=== PATIENT | female | born 1995 | race Caucasian/White ===

== ENCOUNTER 2017-10-03 18:18 | Emergency (ER) | payer BC ==
[2017-10-03 18:46] VITALS: BP 105/67
--- NOTE | 2017-10-03 19:32 | UC ---
Dental HPI - HPI Summary HPI Summary: 22 y/o female presents to the urgent care c/o Rt upper gum pain and swelling s/ p gum surgery for smile design on 09/26/2017. Pt states she was rinsing her mouth as directed by the Dentist, but swelling has worsen and the molar roots are more exposed. Pain is 5/10. she has took ibuprofen 400mg this morning to alleviate symptoms. Pt denies fever, SOB, chest pain, abdominal pain, N/V/D - History of Current Complaint Chief Complaint: UCDentalProblem Stated Complaint: ORAL COMPLAINT Time Seen by Provider: 10/03/17 19:30 Hx Obtained From: Patient Hx Last Menstrual Period: CURRENT Onset/Duration: Gradual Onset, Lasting Weeks - 1 week, Worse Since - yesterday Severity: Moderate Pain Intensity: 5 Pain Scale Used: 0-10 Numeric Aggravating Factor(s): Chewing Alleviating Factor(s): OTC Meds - Allergies/Home Medications Allergies/Adverse Reactions: Allergies Allergy/AdvReac Type Severity Reaction Status Date / Time amoxicillin Allergy Rash Verified 10/03/17 18:38 PMH/Surg Hx/FS Hx/Imm Hx Previously Healthy: Yes - Pt denies PMHX - Surgical History Surgical History: Yes Surgery Procedure, Year, and Place: WISDOM TEETH EXTRACTIONS. - Family History Known Family History: Positive: Diabetes - Social History Occupation: Student Lives: With Family Alcohol Use: Occasionally Substance Use Type: None Smoking Status (MU): Never Smoked Tobacco Review of Systems Constitutional: Negative Skin: Negative Eyes: Negative ENT: Dental Pain - gum pain and swelling Respiratory: Negative Cardiovascular: Negative Gastrointestinal: Negative Genitourinary: Negative Motor: Negative Neurovascular: Negative Musculoskeletal: Negative Neurological: Negative Psychological: Negative Is Patient Immunocompromised?: No All Other Systems Reviewed And Are Negative: Yes Physical Exam - Summary Physical Exam Summary: Vital Signs Reviewed: Yes General: well developed. well nourished female sitting in the examining table w/ o any apparent distress Eyes: Positive: Conjunctiva Clear - PERRLA, EOMI, fundi grossly normal ENT: Positive: Normal ENT inspection, Hearing grossly normal, Pharyngeal erythema, TMs normal, Uvula midline. Negative: Tonsillar swelling, Tonsillar exudate, Trismus Dental: Positive: Percussion Tenderness @ - molar 4,5, Mild Abscess @ - molar 4, 5, mild Cervical Lymphadenopathy - B/L anterior, Neck: Positive: Supple, Nontender Respiratory: Positive: Chest non-tender, Lungs clear, Normal breath sounds, No respiratory distress Cardiovascular: Positive: RRR, No Murmur, Pulses Normal, Brisk Capillary Refill Abdomen Description: Positive: Nontender, No Organomegaly, Soft. Negative: CVA Tenderness (R), CVA Tenderness (L) Bowel Sounds: Positive: Present Musculoskeletal: Positive: Strength Intact, ROM Intact, No Edema Neurological Exam: Normal Psychological Exam: Normal Skin Exam: Normal Triage Information Reviewed: Yes Vital Signs: Initial Vital Signs Temp 99 F 10/03/17 18:39 Pulse 65 10/03/17 18:39 Resp 16 10/03/17 18:39 BP 105/67 10/03/17 18:39 Pulse Ox 100 10/03/17 18:39 Dental Complaint Course/Dx - Course Course Of Treatment: 22 y/o female presents to the urgent care c/o Rt upper gum pain and swelling s/p gum surgery for smile design on 09/26/2017. Pt states she was rinsing her mouth as directed by the Dentist, but swelling has worsen and the molar roots are more exposed. Pain is 5/10. she has took ibuprofen 400mg this morning to alleviate symptoms. Pt denies fever, SOB, chest pain, abdominal pain, N/V/D. hx obtained. Pt w/Percussion Tenderness @ - molar 4,5, Mild Abscess @ - molar 4,5, mild w/ B/L anterior Cervical Lymphadenopathy on examination. Pt with dental abscess on examination. Pt given viscous Lidocaine at the clinic to alleviate symptoms. Pt PCN allergic. Rx clindamycin PO and Ibuprofen PO for pain. Pt strongly advised to f/u with her Dentist as soon as possible further evaluation and treatment. Pt understood and agreed with plan of care. Left the clinic ambulating. - Differential Dx/Diagnosis Differential Diagnosis/Dx: Dental Abscess, Dental Caries, Odontogenic Pain, Peridontic Disease Provider Diagnoses: 1- Dental abscess. 2-Gingivitis Discharge - Sign-Out/Discharge Documenting (check all that apply): Discharge/Admit/Transfer - D/c home - Discharge Plan Condition: Stable Disposition: HOME Prescriptions: Clindamycin Cap(NF) [Clindamycin Cap 300 mg Cap(NF)] 300 mg PO TID #30 cap Ibuprofen TAB* [Motrin TAB* 800 MG] 800 mg PO Q6H PRN #20 tab PRN Reason: dental pain Patient Education Materials: Dental Abscess (ED), Gingivitis (ED) Ref[place]: [facility] [place] [facility] [place] [facility] [place]Outside] - 2 Days Additional Instructions: 1-Please take full course of antibiotic to avoid resistance. Take Probiotics to protect your stomach 2- Take Ibuprofen as instructed after meals to alleviate pain and swelling. 3- F/u with your Dentist as soon as possible for further treatment. 4- If symptoms do not improve or worsen please return to the urgent care or f/u with your PCP for further evaluation and treatment - Billing Disposition and Condition Condition: STABLE Disposition: HOME
[2017-10-03] MEDS ORDERED: Ibuprofen TAB* 400 MG PO ONE (19:47)
[2017-10-03] MEDS ORDERED: Lidocaine 2% VISCOUS* 15 ML UDC SWISH SPIT ONE (19:47)
== END 2017-10-03 20:03 | disposition home or self-care (01) ==
LOC: UCCORT 18:18
DX: K04.7 Periapical abscess without sinus (principal); K05.10 Chronic gingivitis, plaque induced; Z88.3 Allergy status to other anti-infective agents
CPT/HCPCS: 99202; A9270-GY; G0463